=== PATIENT | female | born 1990 | race Caucasian/White ===

== ENCOUNTER 2016-10-13 22:53 | Inpatient (IN) | payer BC ==
[2016-10-13 23:25] LABS: ROM Internal QC QC Line Present
[2016-10-14 00:37] LABS: Hematocrit 38 % (35-47); Hemoglobin 12.4 g/dl (12.0-16.0); Mean Corpuscular HGB Conc 33 g/dl (31-36); Mean Corpuscular Hemoglobin 27 pg (27-31); Mean Corpuscular Volume 81 fL (80-97); Mean Platelet Volume 7 um3 (7.4-10.4); Red Blood Count 4.65 10^6/ul (4.0-5.4); Red Cell Distribution Width 15 % (10.5-15); White Blood Count 11.4 10^3/ul (3.5-10.8)
[2016-10-14] MEDS ORDERED: Oxytocin in LR* 20 UNITS/1,000 ML BAG IVPB ONE (08:10)
[2016-10-14] MEDS ORDERED: Oxytocin in LR* 20 UNITS/1,000 ML BAG IVPB SCH ×2 (09:00→16:14)
[2016-10-14] MEDS ORDERED: OBEPIDURAL* 250 ML ONE (09:06)
[2016-10-14] MEDS ORDERED: Phenylephrine IV* 40 MCG/ML 10 ML SYRINGE ONE (09:10)
[2016-10-14] MEDS ORDERED: Phenylephrine IV* 40 MCG/ML 10 ML SYRINGE IV PUSH PRN ×2 (10:42)
[2016-10-14] MEDS ORDERED: Sodium Citrate/Citric Acid* 15 ML UDC PO PRN (10:42)
[2016-10-14] MEDS ORDERED: Famotidine TAB* 20 MG PO PRN (10:42)
[2016-10-14] MEDS ORDERED: EPHEDrine (Pressors)* 50 MG/ML VIAL IV PUSH PRN ×2 (10:42)
[2016-10-14] MEDS ORDERED: OBEPIDURAL* 250 ML EPIDURAL SCH (11:00)
[2016-10-14] MEDS ORDERED: Witch Hazel PAD* JAR ONE (16:05)
[2016-10-14] MEDS ORDERED: Dibucaine 1% 28.35 GM TUBE ONE (16:05)
[2016-10-14] MEDS ORDERED: Witch Hazel PAD* JAR TOPICAL PRN (16:13)
[2016-10-14] MEDS ORDERED: Acetaminophen TAB* 325 MG PO PRN (16:13)
[2016-10-14] MEDS ORDERED: oxyCODONE/Acetamin 5/325 MG* TAB PO PRN (16:13)
[2016-10-14] MEDS ORDERED: Dibucaine 1% 28.35 GM TUBE PR PRN (16:13)
[2016-10-14] MEDS ORDERED: Glycerin ADULT SUPP PR PRN (16:13)
[2016-10-14] MEDS: Docusate CAP* 100 MG PO SCH (19:58)
[2016-10-15] MEDS: Ibuprofen TAB* 600 MG PO PRN ×3 (06:27→18:27)
[2016-10-15 07:32] LABS: Hematocrit 33 % (35-47); Mean Corpuscular HGB Conc 33 g/dl (31-36); Mean Corpuscular Hemoglobin 27 pg (27-31); Mean Corpuscular Volume 81 fL (80-97); Mean Platelet Volume 7 um3 (7.4-10.4); Red Blood Count 4.09 10^6/ul (4.0-5.4); Red Cell Distribution Width 15 % (10.5-15)
[2016-10-15] MEDS ORDERED: Ferrous Gluconate TAB* 324 MG TAB PO SCH (09:00)
--- NOTE | 2016-10-15 10:01 | PTEDU ---
Patient Name: HERON SOTO HERON SOTO selected video: Never Ever Shake a Baby to view on 10/15/2016 at 10:00:27 AM from [id number]
--- NOTE | 2016-10-15 10:10 | PTEDU ---
Patient Name: HERON SOTO HERON SOTO selected video: Follow Me Mum: [employer] [place] [employer] Success[employer] to view on 2016 at 10:09:23 AM from [id number]
[2016-10-15] MEDS: Docusate CAP* 100 MG PO SCH ×3 (11:12→23:57)
[2016-10-16] MEDS: Ibuprofen TAB* 600 MG PO PRN (07:29)
[2016-10-16 08:40] VITALS: BP 118/80
[2016-10-16] MEDS: Docusate CAP* 100 MG PO SCH (10:40)
== END 2016-10-16 11:10 | disposition home or self-care (01) | DRG 560 ==
LOC: MCHOBOUT 22:53 → MCHOB 23:41
PROVIDERS: ADMIT Nurse Practitioner; ATTEND Nurse Practitioner
PROC: 10E0XZZ Delivery of Products of Conception, External Approach (ICD-10-PCS; principal; 2016-10-14)
PROC: 0KQM0ZZ Repair Perineum Muscle, Open Approach (ICD-10-PCS; 2016-10-14)
DX: O48.0 Post-term pregnancy (principal); G43.909 Migraine, unspecified, not intractable, without status migrainosus; O99.824 Streptococcus B carrier state complicating childbirth; O70.1 Second degree perineal laceration during delivery; Z88.2 Allergy status to sulfonamides; Z3A.41 41 weeks gestation of pregnancy; Z37.0 Single live birth
CPT/HCPCS: 36415; 84112; 85025; 85027; 86850; 86900; 86901; A9270-GY